=== PATIENT | female | born 1960 | race Caucasian/White ===

== ENCOUNTER → 2017-01-31 | Day surgery (SDC) | payer BC, OTHER ==
[~2017-01-31] VITALS: Ht 165.1 cm; Wt 93.0 kg
[2017-01-31] VITALS (8 sets, daily range): BP systolic 117–142; BP diastolic 68–85
[~2017-01-31] MED LIST: Bacitracin Oint 15gm Tube TOPIC ONE; Betadine 10% Oint 15gm TOPIC ONE; Bupivacaine 0.5% Inj 30 ml vial INJ ONE; Dexamethasone 4mg/ml vial ONE; Hydromorphone 0.5mg/0.5ml inj IVP PRN; Ketorolac 30mg Inj IV PRN; Lidocaine 2% MPF 5ml Vial INJ ONE; Metoclopramide 10mg/2ml Inj ONE; Metoprolol 5mg/5ml Inj ONE; NS Irrig 1000ml IRRIG ONE; Norco 5mg/325mg tab ORAL PRN; OMEPRAZOLE10 M1 ORAL; Sterile Water Irrig 1000ml IRRIG ONE; VYTORIN 10-101 EACH ORAL; Zemuron 50mg/5ml Inj IV ONE; fentaNYL 100 mcg/2 mL IV PRN
--- NOTE | 2017-01-31 07:34 | Pre-Procedure Note/Attestation ---
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 I attest that, if there was a reasonable possibility of needing a blood transfusion, the patient (or the patient's legal senior human resources representative) was given the [facility] standardized written summary, pursuant to the [place] Blood Safety Act ([place] Health and Safety Code # 1645, as amended). I attest that I re-evaluated the patient just prior to the surgery and that there has been no change in the patient's H&P, except as documented below: CIERA READ Jan 31, 2017 07:34
--- NOTE | 2017-01-31 08:06 | Anethesia Preoperative Eval ---
Anesthesia Pre-op PMH/ROS General Date of Evaluation: Jan 31, 2017 Time of Evaluation: 07:10 Anesthesiologist: Uzma ASA Score: ASA 2 Mallampati Score Class I : Soft palate, uvula, fauces, pillars visible Class II: Soft palate, uvula, fauces visible Class III: Soft palate, base of uvula visible Class IV: Only hard plate visible Mallampati Classification: Class II Surgeon: Sue Diagnosis: Calcaneus Deformity Surgical Procedure: Removal portion of Calcaneus Anesthesia History: PONV Family History: no anesthesia problems Allergies: Coded Allergies: No Known Allergies (Verified Allergy, Unknown, 09/10/06) Medications: see eMAR Past Medical History Cardiovascular: Reports: other - lipis Pulmonary: Denies: COPD, ABIGAIL, asthma, other Gastrointestinal/Genitourinary: Reports: GERD Neurologic/Psychiatric: Denies: CVA, TIA, dementia, depression/anxiety, other Endocrine: Denies: DM, hypothyroidism, other, steroids Musculoskeletal/Integumentary: Reports: DJD Anesthesia Pre-op Phys. Exam Physician Exam Last Vital Signs Date Time Temp Pulse Resp B/P Pulse Ox O2 Delivery O2 Flow Rate FiO2 01/31/17 07:09 97.6 56 20 136/85 99 Room Air Constitutional: NAD Neurologic: CN 2-12 intact Cardiovascular: RRR Respiratory: CTA Gastrointestinal: S/NT/ND Airway Exam Mallampati Score: Class II LEONIDES WESLEY M.D. Jan 31, 2017 08:06
--- NOTE | 2017-01-31 08:46 | Immediate Post-Op Evaluation ---
Immediate Post-Op Evalulation Immediate Post-Op Evalulation Procedure: Excision calcaneal bone Date of Evaluation: Jan 31, 2017 Time of Evaluation: 09:00 IV Fluids: 400 Blood Products: 0 Estimated Blood Loss: 0 Urinary Output: 0 Blood Pressure Systolic: 130 Blood Pressure Diastolic: 80 Pulse Rate: 80 Respiratory Rate: 20 O2 Sat by Pulse Oximetry: 99 Temperature (Fahrenheit): 98 Pain Score (1-10): 2 Nausea: No Vomiting: No Complications na Patient Status: awake Hydration Status: adequate Drug: ancef 2G Given Within 1 Hr of Incision: Yes Time Given: 07:30 LEONIDES WESLEY M.D. Jan 31, 2017 08:46
--- NOTE | 2017-01-31 08:47 | 48 Hour Post Anesthesia Eval ---
Post Anesthesia Evaluation Procedure: Excision calcaneal bone Date of Evaluation: Jan 31, 2017 Time of Evaluation: 10:00 Blood Pressure Systolic: 140 0: 80 Pulse Rate: 80 Respiratory Rate: 20 Temperature (Fahrenheit): 98 O2 Sat by Pulse Oximetry: 98 Airway: patent Nausea: No Vomiting: No Pain Intensity: 2 If pain is > 6 Comment: 2 Hydration Status: adequate Cardiopulmonary Status: stable Mental Status/LOC: patient returned to baseline Follow-up Care/Observations: na Post-Anesthesia Complications: na Follow-up care needed: N/A LEONIDES WESLEY M.D. Jan 31, 2017 08:47
--- NOTE | 2017-01-31 08:52 | Brief Operative Note ---
Immediate Post Operative Note Operative Note Pre-op Diagnosis: Retro- calcaneal hyperostosis (Rachel's deformity) Procedure: Resection of Rachel's deformity with reattachment of Achilles tendon, RT foot Post-op Diagnosis: same as pre-op Anesthesia: general Specimen: yes - Retro calcaneal bone and tissue Complications: none Condition: stable Estimated Blood Loss: minimal Drains: none Implant(s) used?: Yes - CIERA Marie Jan 31, 2017 08:52
--- NOTE | 2017-01-31 16:38 | Operative Note - Dictated ---
DATE OF OPERATION: 01/31/2017 PREOPERATIVE DIAGNOSIS: Right Rachel's deformity. POSTOPERATIVE DIAGNOSIS: Right Rachel's deformity. OPERATION PERFORMED: 1. Resection of Rachel's deformity, right foot. 2. Reattachment of Achilles tendon, right foot. ANESTHESIOLOGIST: Dr. Bacon. TYPE OF ANESTHESIA: . OPERATION IN DETAIL: The patient was brought into the operating room and placed on OR table in prone position after anesthesiologist administered general anesthesia via ET tube as well as 1 g Ancef. The right lower extremity was then prepped and draped in the usual aseptic and sterile manner. Attention was directed to the posterior lateral aspect of the right heel where an incision of approximately of 4 cm in length was made lateral to the Achilles tendon. The incision was carried down through the layers being careful to avoid all vital structures and ligating potential bleeders as needed. The periosteum was then incised and then soft tissue was the reflected after the posterior superior aspect of the calcaneus. The Achilles tendon had to be partially patched on the lateral aspect of the calcaneus in order to resect adequate amount of bone utilizing a sagittal saw and power rasp, the hyperostosis was then resected. The prominent posterior superior bump was then reevaluated and no hyperostosis was noted. The wound was then copiously irrigated with sterile saline. The lateral Achilles tendon was then reattached with one 2.9 JuggerKnot anchor. Excellent fixation was noted and then the incision was closed with 3-0 Vicryl and 4-0 nylon. Sterile dressing was applied consisting of Bacitracin ointment. Adaptic 4 x 4 Coban. Estimated blood loss was less than 20 mL. The patient tolerated the anesthesia and procedure well and left the operating room with all vital signs stable. Neurovascular status to the right foot was noted to be intact at the end of the case. Kraig Rogers D.P.M. DR: OUMAR JOB#: [id number] CC:
== END | disposition home or self-care (01) ==
LOC: SUR 06:22
DX: M92.61 Juvenile osteochondrosis of tarsus, right ankle (principal); I10 Essential (primary) hypertension; E78.5 Hyperlipidemia, unspecified; K21.9 Gastro-esophageal reflux disease without esophagitis; M19.90 Unspecified osteoarthritis, unspecified site; E55.9 Vitamin D deficiency, unspecified
CPT/HCPCS: 28119; 97161; J0690; J1100; J2405; J2765; J3490; 94003; 94150; C1713